=== PATIENT | male | born 1980 | race Caucasian/White ===

== ENCOUNTER 2017-09-21 20:08 | Emergency (ER) | payer SELFPAY ==
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
[2017-09-22 07:40] VITALS: BP 132/84
== END 2017-09-21 21:25 | disposition home or self-care (01) ==
LOC: VM.ED 20:08
DX: S02.2XXA Fracture of nasal bones, initial encounter for closed fracture (principal); S01.81XA Laceration without foreign body of other part of head, initial encounter; Y04.2XXA Assault by strike against or bumped into by another person, initial encounter
CPT/HCPCS: 70486; 73120-LT; 99283-GF; 99284